=== PATIENT | female | born 1975 | race Caucasian/White ===

== ENCOUNTER 2018-01-26 13:41 | Emergency (ER) | payer MEDICAID ==
[~2018-01-26] VITALS: Ht 152.4 cm; Wt 90.9 kg
[2018-01-26] MEDS: ONDANSETRON HCL 4 MG TABLET PO ONE (15:22)
[2018-01-26] MEDS: SUMAtriptan SUCCINATE 6 MG/0.5 ML VIAL SQ ONE (15:23)
[2018-01-26] MEDS: KETOROLAC TROMETHAMINE 30 MG/ML VIAL IM ONE (16:25)
[2018-01-26] MEDS: DEXAMETHASONE 4 MG TABLET PO ONE (16:25)
[2018-01-26 17:14] VITALS: BP 110/79
== END 2018-01-26 17:34 | disposition home or self-care (01) ==
LOC: EMS 15:04
DX: G43.909 Migraine, unspecified, not intractable, without status migrainosus (principal); J45.909 Unspecified asthma, uncomplicated; Z90.49 Acquired absence of other specified parts of digestive tract
CPT/HCPCS: 96372; 99284; J1885; J3030; J8540; Q0162

== ENCOUNTER 2023-09-25 15:10 | Emergency (ER) | payer MEDICAID, OTHER ==
[~2023-09-25] VITALS: Ht 153 cm; Wt 90.9 kg
[~2023-09-25 15:10] MED LIST: ALBU18HF12 IH
[2023-09-25 15:33] VITALS: BP 121/76; PULSE 120; RESP 14; TEMP 100.8
[2023-09-25 15:48] LABS: COVID AG,FIA SOURCE NASAL SWAB
[2023-09-25 16:31] LABS: INFLUENZA TYPE A NEGATIVE FOR TYPE A (NEGATIVE); INFLUENZA TYPE B NEGATIVE FOR TYPE B (NEGATIVE)
[2023-09-25 16:38] LABS: SARS-COV2 (COVID) ANTIGEN,FIA Positive (Negative)
[2023-09-25] MEDS ORDERED: METO-408 PO (17:02)
[2023-09-25] MEDS ORDERED: LISI10TA24 PO (17:02)
[2023-09-25] MEDS: ACETAMINOPHEN 1000 MG/ISO-OSM 100 ML IV ONE (17:11)
[2023-09-25] MEDS: DEXAMETHASONE SOD PHOS 4 MG/ML 5 ML VIAL IVP ONE (17:12)
[2023-09-25 17:23] LABS: BASOPHILS % (AUTO) 0.3 % (0.0-2.0); EOSINOPHILS % (AUTO) 0.2 % (1.0-6.0); HEMATOCRIT 40.8 % (36-46); HEMOGLOBIN 13.5 g/dL (12.0-16.0); LYMPHOCYTES # (AUTO) 0.6 K/uL (1.0-4.8); LYMPHOCYTES % (AUTO) 5.8 % (22.0-44.0); MEAN CORPUSCULAR HEMOGLOBIN 29.7 pg (26.0-34.0); MEAN CORPUSCULAR HGB CONC 33.1 G/dL (31.0-37.0); MEAN CORPUSCULAR VOLUME 90 fL (80-100); MONOCYTES # (AUTO) 0.7 K/uL (0.1-1.0); MONOCYTES % (AUTO) 6.1 % (2.0-9.0); NEUTROPHILS # (AUTO) 9.4 K/uL (1.8-7.7); PLATELET COUNT (AUTO) 183 K/uL (150-450); RED BLOOD CELL COUNT(AUTO) 4.54 MIL/uL (4.00-5.20); RED CELL DISTRIBUTION WIDTH 13.5 % (11.5-14.5); WHITE BLOOD COUNT (AUTO) 10.7 K/uL (4.5-11.0)
[2023-09-25 17:27] LABS: ANION GAP 10 mmol/L (8-16); CALCIUM, TOTAL 8.8 mg/dL (8.8-10.5); CARBON DIOXIDE 24 mmol/L (22-29); CHLORIDE 98 mmol/L (98-107); CREATININE 0.74 mg/dL (0.60-1.30); GLOMERULAR FILTR. RATE CALC > 60 mL/min (>60); GLUCOSE,RANDOM 131 mg/dL (70-110); POTASSIUM 3.9 mmol/L (3.5-5.1); SODIUM SERUM 132 mmol/L (136-145); UREA NITROGEN, BLOOD 8 mg/dL (7-18)
[2023-09-25 17:34] LABS: ALANINE AMINOTRANSFERASE 57 U/L (12-78); ALKALINE PHOSPHATASE 102 U/L (46-116); ASPARTATE AMINOTRANSFERASE 36 U/L (15-37); BILIRUBIN,TOTAL 0.6 mg/dL (0.1-1.0); TOTAL PROTEIN, SERUM 7.3 g/dL (6.4-8.2)
[2023-09-25 17:37] LABS: NEUTROPHILS % (AUTO) 87.6 % (40.0-70.0)
[2023-09-25 18:56] LABS: APPEARANCE,URINE HAZY (CLEAR); BILIRUBIN,URINE NEGATIVE (NEGATIVE); COLOR,URINE LIGHT YELLOW (YELLOW); GLUCOSE, URINE (UA) NEGATIVE (NEGATIVE); KETONES,URINE NEGATIVE (NEGATIVE); LEUKOCYTE ESTERASE ,URINE TRACE (NEGATIVE); NITRATE,URINE NEGATIVE (NEGATIVE); OCCULT BLOOD,URINE SMALL (NEGATIVE); PH,URINE 5.5 (5.0-8.0); PROTEIN,URINE NEGATIVE (NEGATIVE); SPECIFIC GRAVITIY, URINE 1.013 (1.003-1.030); UROBILINOGEN,URINE <=1.0 mg/dL (<=1.0)
[2023-09-25] MEDS ORDERED: ALBU18HF12 IH (18:56)
[2023-09-25] MEDS ORDERED: NIRM1TAB10 PO (18:56)
[2023-09-25 19:14] LABS: BACTERIA,URINE Moderate /HPF (None Seen); SQUAMOUS EPITHELIAL CELL,UR Moderate /LPF (None Seen)
== END 2023-09-25 19:37 | disposition home or self-care (01) ==
LOC: EMS 15:10
DX: U07.1 COVID-19 (principal); M79.10 Myalgia, unspecified site; R51.9 Headache, unspecified; R05.9 Cough, unspecified; F12.90 Cannabis use, unspecified, uncomplicated; J45.909 Unspecified asthma, uncomplicated; Z79.899 Other long term (current) drug therapy
CPT/HCPCS: 99284; 96365; 71045; 96375; 87426; 80053; 81001; 85025; 87804; 36415; 87086; 87186; J1100; J0131

== ENCOUNTER 2024-05-18 04:54 | Emergency (ER) | payer OTHER ==
[~2024-05-18] VITALS: Ht 152.4 cm; Wt 97.7 kg
[~2024-05-18 04:54] MED LIST changes: +LISI10TA24 PO; +METO-408 PO; +NIRM1TAB10 PO
[2024-05-18 04:59] VITALS: BP 129/81; PULSE 100; RESP 18; TEMP 98.4; O2SAT 99
[2024-05-18 05:14] LABS: COVID AG,FIA SOURCE NASAL SWAB
[2024-05-18 05:36] LABS: RAPID GROUP A STREP NEGATIVE (NEGATIVE)
[2024-05-18 05:41] LABS: INFLUENZA TYPE A NEGATIVE FOR TYPE A (NEGATIVE); INFLUENZA TYPE B NEGATIVE FOR TYPE B (NEGATIVE); SARS-COV2 (COVID) ANTIGEN,FIA Negative (Negative)
[2024-05-18] MEDS ORDERED: BENZ-227 PO (06:21)
== END 2024-05-18 06:50 | disposition home or self-care (01) ==
LOC: EMS 04:56
DX: J06.9 Acute upper respiratory infection, unspecified (principal); H57.89 Other specified disorders of eye and adnexa; B97.89 Other viral agents as the cause of diseases classified elsewhere; J45.909 Unspecified asthma, uncomplicated; I10 Essential (primary) hypertension; F12.90 Cannabis use, unspecified, uncomplicated; Z90.49 Acquired absence of other specified parts of digestive tract; Z79.899 Other long term (current) drug therapy; Z20.822 Contact with and (suspected) exposure to COVID-19
CPT/HCPCS: 87430; 87804; 99283